=== PATIENT | male | born 1995 | race Caucasian/White ===

== ENCOUNTER 2019-02-09 15:22 | Emergency (ER) | payer BC, OTHER ==
[2019-02-09] MEDS ORDERED: NA CHLORIDE 0.9% 1,000 ML ONE (15:35)
[2019-02-09 15:50] LABS: Absolute Lymphocytes (CBC) 1.7 K/uL (0.7-4.9); Basophils % 0.5 % (0-1.3); Hematocrit 41.3 % (39.6-49.0); Lymphocytes % 20.6 % (15.3-44.8); RBC Red Blood Cell Count 4.67 M/uL (4.33-5.43)
[2019-02-09 15:57] LABS: Protime INR 1.05
--- NOTE | 2019-02-09 16:11 | RAD REPORT ---
EXAM DESCRIPTION: RAD - Chest Single View - 02/09/2019 3:49 pm CLINICAL HISTORY: Chest pain COMPARISON: None. TECHNIQUE: AP portable chest image was obtained 1547 hours . FINDINGS: Lungs are clear. Heart and vasculature are normal. No measurable pleural effusion and no p neumothorax. No acute bony abnormality seen. No acute aortic findings suspected. IMPRESSION: No acute cardiopulmonary process.
--- NOTE | 2019-02-09 16:12 | RAD REPORT ---
EXAM DESCRIPTION: CT - Head Brain Wo Cont - 02/09/2019 3:53 pm CLINICAL HISTORY: Seizure COMPARISON: None. TECHNIQUE: Axial 5 mm thick images of the head were obtained without IV contrast. All CT scans are performed using dose optimization technique as appropriate and may include automated exposure control or mA/KV adjustment according to patient size. FINDINGS: No intracranial hemorrhage, mass, edema or shift of mid-line structures. No acute infarcti on changes seen. No abnormal extra-axial fluid collections. Ventricles are normal. Mastoid air cells and visualized portions of the paranasal sinuses are clear. No acute bony findings. IMPRESSION: Negative non-contrast CT head examination.
[2019-02-09 16:54] LABS: Barbiturates NEGATIVE (NEGATIVE); Benzodiazepines NEGATIVE (NEGATIVE); Cocaine NEGATIVE (NEGATIVE); METHAMPHETAM NEGATIVE (NEGATIVE); Methadone NEGATIVE (NEGATIVE); Opiates NEGATIVE (NEGATIVE); Phencyclidine NEGATIVE (NEGATIVE); THC Cannibis NEGATIVE (NEGATIVE)
[2019-02-09 17:29] LABS: Urine Blood TRACE (NEG); Urine Glucose NEGATIVE (NEG); Urine Protein TRACE (NEG); Urine pH 5.5 (5.0-7.0)
[2019-02-09 18:06] LABS: ALT/SGPT 21 U/L (12-78); AST/SGOT 15 U/L (15-37); Albumin 3.8 g/dL (3.4-5.0); Alkaline Phosphatase 74 U/L (45-117); BUN Blood Urea Nitrogen 15 mg/dL (7-18); Bicarbonate 23 mmol/L (21-32); Bilirubin Direct 0.1 mg/dL (0-0.2); Bilirubin Total 0.3 mg/dL (0.2-1.0); Glucose Level 102 mg/dL (74-106); Potassium 3.3 mmol/L (3.5-5.1); Protein, Total 6.7 g/dL (6.4-8.2); Sodium Level 142 mmol/L (136-145)
[2019-02-09] MEDS ORDERED: POTASSIUM 25 MEQ EFFERV TAB ONE (18:15)
--- NOTE | 2019-02-09 18:27 | EDPHYS ---
Physician Documentation [facility] Name: Grzegorz Yu Age: 23 yrs Sex: Male : 1995 Arrival Date: 02/09/2019 Time: 15:23 Bed 5 Private MD: ED Physician Frank Palmer HPI: 02/09 15:37 This 23 yrs old Male presents to ER via EMS with complaints of Probable cp Seizure. 15:37 The patient presents after having a single isolated seizure, that lasted an unknown cp period of time, the episode(s) was witnessed, by co-worker(s). Character of seizure(s): Loss of consciousness: the patient experienced loss of consciousness, Motor activity: generalized, shaking all over, Incontinence: none. Seizure onset: just prior to arrival. Context: occurred at work, Contributing factors: unknown, no witnesses. Seizure Hx: the patient has no previous seizure history. Associated injury: The patient did not suffer any apparent associated injury. EMS care: none. Historical: - Allergies: 15:27 No Known Allergies; sg - Home Meds: 15:27 None [Active]; sg - PSHx: 15:24 None; sg - Immunization history:: Adult Immunizations unknown. - Social history:: Smoking status: Patient/guardian denies using tobacco. - Ebola Screening: : Patient negative for fever greater than or equal to 101.5 degrees Fahrenheit, and additional compatible Ebola Virus Disease symptoms Patient denies exposure to infectious person Patient denies travel to an Ebola-affected area in the 21 days before illness onset No symptoms or risks identified at this time. ROS: 15:43 Constitutional: Negative for body aches, chills, fever, poor PO intake. cp 15:43 Eyes: Negative for injury, pain, redness, and discharge. cp 15:43 ENT: Negative for drainage from ear(s), ear pain, sore throat, difficulty swallowing, difficulty handling secretions. 15:43 Cardiovascular: Negative for chest pain, edema, palpitations. 15:43 Respiratory: Negative for cough, shortness of breath, wheezing. 15:43 Abdomen/GI: Negative for abdominal pain, nausea, vomiting, and diarrhea, constipation, black/tarry stool, rectal bleeding. 15:43 : Negative for urinary symptoms. 15:43 Skin: Negative for cellulitis, rash. 15:43 Neuro: Negative for altered mental status, headache, weakness. 15:43 All other systems are negative. Exam: 15:45 ECG was reviewed by the Attending Physician. cp 15:50 Constitutional: The patient appears in no acute distress, alert, awake, cp non-diaphoretic, non-toxic, well developed, well nourished. 15:50 Head/Face: Normocephalic, atraumatic. Eyes: Pupils equal round and reactive to light, cp extra-ocular motions intact. Lids and lashes normal. Conjunctiva and sclera are non-icteric and not injected. Cornea within normal limits. Periorbital areas with no swelling, redness, or edema. ENT: Nares patent. No nasal discharge, no septal abnormalities noted. Tympanic membranes are normal and external auditory canals are clear. Oropharynx with no redness, swelling, or masses, exudates, or evidence of obstruction, uvula midline. Mucous membranes moist. Neck: Trachea midline, no thyromegaly or masses palpated, and no cervical lymphadenopathy. Supple, full range of motion without nuchal rigidity, or vertebral point tenderness. No Meningismus. Chest/axilla: Normal chest wall appearance and motion. Nontender with no deformity. No lesions are appreciated. 15:50 Cardiovascular: Rate: tachycardic, Rhythm: regular, Pulses: Pulses are 2+ in right radial artery and left radial artery. Edema: is not appreciated, JVD: is not appreciated. 15:50 Respiratory: the patient does not display signs of respiratory distress, Respirations: normal, no use of accessory muscles, no retractions, no splinting, no tachypnea, labored breathing, is not present, Breath sounds: are clear throughout, no decreased breath sounds, no stridor, no wheezing. 15:50 Abdomen/GI: Inspection: abdomen appears normal, Palpation: abdomen is soft and non-tender, in all quadrants. 15:50 Back: pain, is absent, ROM is normal. 15:50 Musculoskeletal/extremity: Exam is negative for decreased range of motion, deformity, injury. 15:50 Skin: no rash present. 15:50 Neuro: Orientation: to person, place \T\ time. Mentation: is normal, Cerebellar function: is grossly normal, Motor: moves all fours, strength is normal, Sensation: is normal. Vital Signs: 15:26 BP 131 / 69; Pulse 110; Resp 17; Temp 98.3; Pulse Ox 100% on R/A; sg 16:19 BP 119 / 69; Pulse 95; Resp 16 S; Pulse Ox 98% on R/A; ca1 17:15 BP 131 / 63; Pulse 90; Resp 16; Temp 98.0(TE); Pulse Ox 98% on R/A; mh5 18:07 BP 122 / 85; Pulse 95; Resp 17; Pulse Ox 99% on R/A; mh5 MDM: 15:33 Patient medically screened. cp 16:00 Differential diagnosis: cerebral vascular accident, drug overdose, cardiac arrhythmia, cp seizure. 18:26 Data reviewed: vital signs, nurses notes, lab test result(s), EKG, radiologic studies, cp CT scan. 18:26 Counseling: I had a detailed discussion with the patient and/or guardian regarding: the cp historical points, exam findings, and any diagnostic results supporting the discharge/admit diagnosis, lab results, radiology results, the need for outpatient follow up, a neurologist, to return to the emergency department if symptoms worsen or persist or if there are any questions or concerns that arise at home. Response to treatment: the patient's symptoms have markedly improved after treatment, VSS. No seizure activity observed while in ED. Will discharge to home for continued monitoring. 02/09 15:33 Order name: Acetaminophen; Complete Time: 18:08 cp 02/09 15:33 Order name: Basic Metabolic Panel; Complete Time: 18:08 cp 02/09 18:08 Interpretation: Normal except: K 3.3; CL 111; GFR 75; CA 8.2. cp 02/09 15:33 Order name: CBC with Diff; Complete Time: 16:20 cp 02/09 16:20 Interpretation: Reviewed. cp 02/09 15:33 Order name: ETOH Level; Complete Time: 16:20 cp 02/09 16:21 Interpretation: Reviewed. cp 02/09 15:33 Order name: Hepatic Function; Complete Time: 18:08 cp 02/09 15:33 Order name: PT-INR; Complete Time: 16:20 cp 02/09 15:33 Order name: Ptt, Activated; Complete Time: 16:20 cp 02/09 15:33 Order name: Salicylate; Complete Time: 17:39 cp 02/09 15:33 Order name: Urine Drug Screen; Complete Time: 17:39 cp 02/09 17:39 Interpretation: Reviewed. cp 02/09 15:33 Order name: CT Head Brain wo Cont; Complete Time: 16:20 cp 02/09 16:21 Interpretation: Report reviewed. cp 02/09 15:33 Order name: XRAY Chest (1 view); Complete Time: 16:20 cp 02/09 17:28 Order name: Urine Dipstick--Ancillary (enter results); Complete Time: 17:39 bd 02/09 17:39 Interpretation: Normal except: UBLD TRACE. cp 02/09 15:33 Order name: EKG; Complete Time: 15:33 cp 02/09 15:33 Order name: EKG - Nurse/Tech; Complete Time: 15:45 cp 02/09 15:33 Order name: IV Saline Lock; Complete Time: 15:33 cp 02/09 15:33 Order name: Labs collected and sent; Complete Time: 15:33 cp 02/09 15:33 Order name: Urine Dipstick-Ancillary (obtain specimen); Complete Time: 15:33 cp EC:45 Rate is 95 beats/min. Rhythm is regular. CA interval is normal. QRS interval is cp prolonged at 108 msec. QT interval is normal. Interpreted by me. Reviewed by me. Administered Medications: 15:44 Drug: NS 0.9% 1000 ml Route: IV; Rate: 1 bolus; Site: left antecubital; ca1 18:18 Follow up: Urine output 900 ml; Response: No adverse reaction; IV Status: Completed ca1 infusion; IV Intake: 1000ml 18:18 Drug: Potassium Effervescent Tablet 50 mEq Route: PO; ca1 18:40 Follow up: Response: No adverse reaction ca1 Disposition: 02/10 07:01 Co-signature as Attending Physician, Frank Palmer MD. rn Disposition: 02/09/19 18:27 Discharged to Home. Impression: Seizure. - Condition is Stable. - Discharge Instructions: Seizure, Adult. - Work release form, Medication Reconciliation Form, Thank You Letter, Antibiotic Education, Prescription Opioid Use form. - Follow up: Sai Keen MD; When: 1 - 2 days; Reason: Recheck today's complaints. - Problem is new. - Symptoms have improved. Signatures: Dispatcher [employer] EDNE Marcos Whittaker, MARISOL RN sg Lazaro, Cris, RN RN iw Frank Palmer MD MD rn Page, Corey, PA PA cp Acob, MARISOL Garcia RN ca1 Corrections: (The following items were deleted from the chart) 02/09 15:50 15:39 Constitutional: Negative for body aches, chills, fever, poor PO intake, cp cp 15:50 15:39 Eyes: Negative for injury, pain, redness, and discharge, cp cp 15:50 15:39 Cardiovascular: Negative for chest pain, palpitations, cp cp 15:50 15:39 Respiratory: Negative for cough, shortness of breath, wheezing, cp cp 15:50 15:39 Abdomen/GI: Negative for abdominal pain, nausea, vomiting, and diarrhea, cp cp 15:50 15:39 MS/extremity: Positive for injury or acute deformity, pain, of the nail of right cp thumb, cp 15:50 15:39 Skin: Negative for cellulitis, rash, cp cp 15:50 15:39 Neuro: Negative for headache, numbness, tingling, cp cp 15:50 15:39 All other systems are negative, cp cp 15:50 15:40 Constitutional: The patient appears in no acute distress, alert, awake, cp non-toxic, well developed, well nourished, cp 15:50 15:40 Head/Face: Normocephalic, atraumatic. cp cp 15:50 15:40 Eyes: Periorbital structures: appear normal, Conjunctiva: normal, Lids and cp lashes: appear normal, bilaterally, cp 15:50 15:40 ENT: External ear(s): are unremarkable, Nose: is normal, Mouth: is normal, cp Posterior pharynx: Airway: no evidence of obstruction, patent, cp 15:50 15:40 Chest/axilla: Inspection: normal, cp cp 15:50 15:40 Cardiovascular: Rate: normal, Rhythm: regular, cp cp 15:50 15:40 Respiratory: the patient does not display signs of respiratory distress, cp Respirations: normal, Breath sounds: are clear throughout, cp 15:50 15:40 Abdomen/GI: Inspection: abdomen appears normal, cp cp 15:50 15:40 Musculoskeletal/extremity: Extremities: grossly normal except: noted in the nail cp of right thumb: swelling, tenderness, partially avulsed, Perfusion: the extremity is normally perfused throughout, Sensation intact. cp 15:50 15:40 Skin: injury, laceration(s), are not present, cp cp 18:08 18:08 Normal except: K 3.3; CL 111; GFR 75. cp cp 18:52 18:27 02/09/2019 18:27 Discharged to Home. Impression: Seizure. Condition is Stable. iw Forms are Medication Reconciliation Form, Thank You Letter, Antibiotic Education, Prescription Opioid Use. Follow up: Sai Keen; When: 1 - 2 days; Reason: Recheck today's complaints. Problem is new. Symptoms have improved. cp 18:55 18:52 02/09/2019 18:27 Discharged to Home. Impression: Seizure. Condition is Stable. iw Discharge Instructions: Seizure, Adult. Forms are Medication Reconciliation Form, Thank You Letter, Antibiotic Education, Prescription Opioid Use, Work release form. Follow up: Sai Keen; When: 1 - 2 days; Reason: Recheck today's complaints. Problem is new. Symptoms have improved. iw 18:58 18:55 02/09/2019 18:27 Discharged to Home. Impression: Seizure. Condition is Stable. iw Discharge Instructions: Seizure, Adult. Forms are Medication Reconciliation Form, Thank You Letter, Antibiotic Education, Prescription Opioid Use, Work release form. Follow up: Sai Keen; When: 1 - 2 days; Reason: Recheck today's complaints. Problem is new. Symptoms have improved. iw
--- NOTE | 2019-02-09 18:27 | ER ---
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 Transition of care: patient was not received from another setting of care. Onset of symptoms was February 09, 2019. Risk Assessment: Do you want to hurt yourself or someone else? Patient reports no desire to harm self or others. Initial Sepsis Screen: Does the patient meet any 2 criteria? No. Patient's initial sepsis screen is negative. Does the patient have a suspected source of infection? No. Patient's initial sepsis screen is negative. Care prior to arrival: Medication(s) given: Normal saline infusion, 500 mL, IV initiated. 20 GA, in the left antecubital area. 15:24 Method Of Arrival: EMS: [facility] sg 15:24 Acuity: TOMAS 3 sg Historical: - Allergies: 15:27 No Known Allergies; sg - Home Meds: 15:27 None [Active]; sg - PSHx: 15:24 None; sg - Immunization history:: Adult Immunizations unknown. - Social history:: Smoking status: Patient/guardian denies using tobacco. - Ebola Screening: : Patient negative for fever greater than or equal to 101.5 degrees Fahrenheit, and additional compatible Ebola Virus Disease symptoms Patient denies exposure to infectious person Patient denies travel to an Ebola-affected area in the 21 days before illness onset No symptoms or risks identified at this time. Screenin:42 Abuse screen: Denies threats or abuse. Denies injuries from another. Nutritional ca1 screening: No deficits noted. Tuberculosis screening: No symptoms or risk factors identified. Fall Risk Fall in past 12 months (25 points). IV access (20 points). Total Bradford Fall Scale indicates No Risk (0-24 pts). Assessment: 15:42 General: Appears in no apparent distress. comfortable, Behavior is calm, cooperative, ca1 appropriate for age. Pain: Denies pain. Neuro: Level of Consciousness is awake, alert, obeys commands, Oriented to person, place, time, situation, Appropriate for age. Cardiovascular: Heart tones S1 S2 present Capillary refill < 3 seconds Patient's skin is warm and dry. Respiratory: Airway is patent Respiratory effort is even, unlabored, Respiratory pattern is regular, symmetrical, Breath sounds are clear bilaterally. GI: Abdomen is round non-distended, Bowel sounds present X 4 quads. Abd is soft and non tender X 4 quads. : No deficits noted. No signs and/or symptoms were reported regarding the genitourinary system. EENT: No deficits noted. No signs and/or symptoms were reported regarding the EENT system. Derm: Skin is intact, is healthy with good turgor, Skin is pink, warm \T\ dry. Musculoskeletal: Circulation, motion, and sensation intact. Capillary refill < 3 seconds, Range of motion: intact in all extremities. 16:19 Reassessment: Patient appears in no apparent distress at this time. Patient and/or ca1 family updated on plan of care and expected duration. Pain level reassessed. Patient is alert, oriented x 3, equal unlabored respirations, skin warm/dry/pink. 17:00 Reassessment: Patient appears in no apparent distress at this time. Patient and/or ca1 family updated on plan of care and expected duration. Pain level reassessed. Patient is alert, oriented x 3, equal unlabored respirations, skin warm/dry/pink. 18:08 Reassessment: Patient appears in no apparent distress at this time. Patient and/or ca1 family updated on plan of care and expected duration. Pain level reassessed. Patient is alert, oriented x 3, equal unlabored respirations, skin warm/dry/pink. Vital Signs: 15:26 BP 131 / 69; Pulse 110; Resp 17; Temp 98.3; Pulse Ox 100% on R/A; sg 16:19 BP 119 / 69; Pulse 95; Resp 16 S; Pulse Ox 98% on R/A; ca1 17:15 BP 131 / 63; Pulse 90; Resp 16; Temp 98.0(TE); Pulse Ox 98% on R/A; mh5 18:07 BP 122 / 85; Pulse 95; Resp 17; Pulse Ox 99% on R/A; mh5 ED Course: 15:23 Patient arrived in ED. sg 15:23 Arm band placed on. sg 15:25 Patient has correct armband on for positive identification. Bed in low position. Call mh5 light in reach. Side rails up X2. Seizure precautions initiated. Pulse ox on. NIBP on. 15:26 Triage completed. sg 15:27 Radha Andrew RN is Primary Nurse. ca1 15:30 Stephen Benavides PA is PHCP. cp 15:30 Frank Pamler MD is Attending Physician. cp 15:42 Door closed. Noise minimized. Visitors limited. Lights dimmed. Warm blanket given. ca1 15:42 No provider procedures requiring assistance completed. Maintain EMS IV. Dressing ca1 intact. Good blood return noted. Site clean \T\ dry. Gauge \T\ site: G20 LAC. 15:48 XRAY Chest (1 view) In Process Unspecified. EDMS 15:48 EKG done, by patient care technician. reviewed by Stephen SHAVER. sm3 15:54 CT Head Brain wo Cont In Process Unspecified. EDMS 18:26 Sai Keen MD is Referral Physician. cp 18:29 IV discontinued, intact, bleeding controlled, No redness/swelling at site. Pressure sg dressing applied. 18:55 Primary Nurse role handed off by Radha Andrew RN iw Administered Medications: 15:44 Drug: NS 0.9% 1000 ml Route: IV; Rate: 1 bolus; Site: left antecubital; ca1 18:18 Follow up: Urine output 900 ml; Response: No adverse reaction; IV Status: Completed ca1 infusion; IV Intake: 1000ml 18:18 Drug: Potassium Effervescent Tablet 50 mEq Route: PO; ca1 18:40 Follow up: Response: No adverse reaction ca1 Intake: 18:18 IV: 1000ml; Total: 1000ml. ca1 Output: 18:18 Urine: 900ml (Voided); Total: 900ml. ca1 18:18 Urine: 900ml; Total: 1800ml. ca1 Outcome: 18:27 Discharge ordered by . cp 18:29 Discharged to home ambulatory, with family. sg 18:29 Condition: good 18:29 Discharge instructions given to patient, Instructed on discharge instructions, follow up and referral plans. safety practices, Demonstrated understanding of instructions, follow-up care. 18:52 Patient left the ED. iw 18:55 Patient left the ED. iw 18:58 Patient left the ED. iw Signatures: Dispatcher [employer] EDMarcos Coon, RN RN Cris Arora RN RN Stephen Hurt PA PA cp Martinez, Maria [facility] Yesica Lopez 3 Radha Andrew RN RN ca1
[2019-02-09 18:59] VITALS: TEMP 98
[2019-02-09 19:01] VITALS: BP 122/85; O2SAT 99
--- NOTE | 2019-02-10 12:15 | EKG ---
Test Date: 2019-02-09 Test Time: 15:38:20 Nailer Hand: WILMAN MEASUREMENT RESULTS: Intervals: Rate: 95 NM: 142 QRSD: 108 QT: 370 QTc: 464 [place]: P: 24 NM: 142 QRS: 68 T: 31 INTERPRETIVE STATEMENTS: Normal sinus rhythm Normal ECG No previous ECG available for comparison Electronically Signed On 02-10-19 12:09:39 CDT by Fabian Garcia
== END 2019-02-09 18:58 | disposition home or self-care (01) ==
LOC: ER 15:22
DX: R56.9 Unspecified convulsions (principal)
CPT/HCPCS: 96361; 93005; 85025; 80048; 36415; 80320; 80329 ×2; 85610; 80076; 80307 ×8; 85730; 81003; 70450; 71045; 96360; 99284; J7030